=== PATIENT | female | born 1995 | race Caucasian/White ===

== ENCOUNTER 2021-08-11 21:26 | Emergency (ER) | payer MEDICAID ==
[~2021-08-11] VITALS: Ht 139.7 cm; Wt 92.5 kg
[2021-08-11 21:52] VITALS: BP_SYST 135
--- NOTE | 2021-08-11 22:55 | NUR ---
ER in waiting room examining patient.
[2021-08-11] MEDS ORDERED: ONDANSETRON 4 MG ODT TAB PO ONE (23:30)
[2021-08-11] MEDS ORDERED: ACETAMINOPHEN 500 MG TABLET PO ONE (23:30)
--- NOTE | 2021-08-12 | NUR ---
PATIENT AAOX4 AND AMBULATORY FROM HOME C/O ABDOMINAL PAIN WITH NAUSEA AND VOMITING SINCE YESTERDAY. PER PATIENT SHE TOOK PEPTO. - DIARRHEA AND CONSTIPATION. HISTORY OF ASTHMA, HTN. CURRENTLY STATING 5/10 ON THE PAIN SCALE. VSS.
--- NOTE | 2021-08-12 00:23 | NUR ---
Medication given as ordered, health teaching rpovided and verbalized understanding
[2021-08-12 01:47] LABS: BILIRUBIN,URINE 1+ (NEGATIVE); BLOOD, URINE 3+ (NEGATIVE); CLARITY/URINE CLOUDY (CLEAR); COLOR,URINE RED (YELLOW); GLUCOSE,URINE TRACE (NEGATIVE); KETONES,URINE TRACE (NEGATIVE); LEUKOCYTE ESTERASE ,URINE NEGATIVE (NEGATIVE); NITRITE, URINE NEGATIVE (NEGATIVE); PROTEIN URINE 2+ (NEGATIVE)
[2021-08-12 02:09] LABS: BACTERIA,URINE FEW /HPF (None Seen); RBC,URINE >100 /HPF (0-3); WBC,URINE 0-3 /HPF (0-3)
[2021-08-12] MEDS ORDERED: ONDA-8 TL (02:14)
[2021-08-12] MEDS ORDERED: CEPH500C2 PO (02:14)
[2021-08-12] MEDS ORDERED: cephALEXin 500 MG CAPSULE PO ONE (02:15)
[2021-08-12 02:35] VITALS: BP_SYST 135
--- NOTE | 2021-08-12 02:35 | NUR ---
Patient given written and verbal discharge instructions and verbalizes understanding. DR. ALKA GONZALEZ MD discussed with patient the results and treatment provided. Patient in stable condition. ID arm band removed. Rx of CEPHALEXIN/ZOFRAN given. Patient educated on pain management and to follow up with PMD. Pain Scale 0/10. Opportunity for questions provided and answered. Medication side effect fact sheet provided.
== END 2021-08-12 02:35 | disposition home or self-care (01) ==
LOC: SED 21:26
DX: N39.0 Urinary tract infection, site not specified (principal); R10.33 Periumbilical pain; Z79.899 Other long term (current) drug therapy
CPT/HCPCS: 74018; 81000; 81025; 99284; Q0162

== ENCOUNTER 2023-10-12 00:26 | Emergency (ER) | payer MEDICAID ==
[~2023-10-12] VITALS: Ht 152.4 cm; Wt 106.1 kg
[~2023-10-12 00:26] MED LIST: CEPH-548 PO; ONDA-8 TL
[2023-10-12 00:33] VITALS: BP_SYST 111; PULSE 99; RESP 19; TEMP 97.6; O2SAT 100
[2023-10-12] MEDS ORDERED: PSEU120T57 PO (00:56)
[2023-10-12] MEDS ORDERED: IBUP-1969 PO (00:56)
[2023-10-12] MEDS ORDERED: IBUPROFEN 600 MG TABLET PO ONE (01:00)
[2023-10-12 01:05] VITALS: BP_SYST 110; PULSE 62; RESP 20; TEMP 97.2; O2SAT 97
== END 2023-10-12 01:05 | disposition home or self-care (01) ==
LOC: SED 00:26
DX: J06.9 Acute upper respiratory infection, unspecified (principal); H92.01 Otalgia, right ear; R05.9 Cough, unspecified; R09.89 Other specified symptoms and signs involving the circulatory and respiratory systems; J45.909 Unspecified asthma, uncomplicated; I10 Essential (primary) hypertension; Z79.899 Other long term (current) drug therapy
CPT/HCPCS: 99282